=== PATIENT | female | born 1975 | race Caucasian/White ===

== ENCOUNTER 2019-05-03 15:29 | Emergency (ER) | payer SELFPAY ==
[2019-05-03 16:52] VITALS: BP 155/94
--- NOTE | 2019-05-03 16:53 | Event Note ---
ED Screening Note Date of service: 05/03/18 Time: 16:51 ED Screening Note: Pt complains of right eye stye x 1.5 months and worsening pain and blurry vision x 3 days ago states home remedies not helping denies fever This initial assessment/diagnostic orders/clinical plan/treatment(s) is/are blake bject to change based on patients health status, clinical progression and re- assessment by fellow clinical providers in the ED. Further treatment and workup at subsequent clinical providers discretion. Patient/guardian urged not to elope from the ED as their condition may be serious if not clinically assessed and managed. Initial orders include:
--- NOTE | 2019-05-03 19:32 | Emergency Department Report ---
Eye Injury/Foreign Body - HPI Duration: 5 Days Eye Location: Right Severity: Mild Tetanus Status: Up to Date Eye Symptoms: Eye Pain: Yes, Eye Redness: No, Grinding/Hammering Metal: No, Used Eye Protection: No, Contact Lens Use: No, Recalls Injury: No, Photophobia: No Other History: [id number] female is a smoker department complaining of a Pap or mass to the right upper eyelid which has been progressively worsening since the onset despite utilization of tea bags, warm compresses and other [id number] remedies. She reports no morning crusting breath is beginning to feel a sensation of irritation to her eye when she blinks from time to time to time. She reports no loss of vision no headache, no fever, chills no sweats. ED Review of Systems ROS: Stated complaint: STYE Other details as noted in HPI Comment: All other systems reviewed and negative ED Past Medical Hx - Past Medical History Previous Medical History?: Yes Hx Hypertension: Yes Additional medical history: SVT - Surgical History Past Surgical History?: Yes Additional Surgical History: left arm surgery. cardiac ablasion - Social History Smoking Status: Never Smoker Substance Use Type: None - Medications Home Medications: Home Medications Medication Instructions Recorded Confirmed Last Taken Type Tobramycin 0.3% [Tobrex] 1 applicatio OD Q8HR 7 Days #1 tube 05/03/19 Unknown Rx Eye Injury Exam - Exam General: Vital signs noted. No distress. Alert and acting appropriately. ED Course Vital Signs 05/03/19 15:35 Pulse Rate 77 Respiratory 20 Rate Blood Pressure 155/94 O2 Sat by Pulse 98 Oximetry Critical care attestation.: If time is entered above; I have spent that time in minutes in the direct care of this critically ill patient, excluding procedure time. ED Disposition Clinical Impression: Chalazion of right eyelid Disposition: DC-01 TO HOME OR SELFCARE Is pt being admited?: No Does the pt Need Aspirin: No Condition: Stable Instructions: Chalazion (ED) Prescriptions: Tobramycin 0.3% [Tobrex] 1 applicatio OD Q8HR 7 Days #1 tube Referrals: SUKI RIGGS MD [Staff Physician] - 3-5 Days ED Eye Prob EXAM - General Limitations: No Limitations Head exam: Positive: atraumatic Eyelids: Stye: Right (has a red papular lesion. Also has very long artificial eyelashes to each eye) Pupils: Regular, Round: Bilateral, Reactive: Bilateral Sclera: Normal Inspection: Bilateral ENT exam: Positive: normal exam, normal orophraynx Neck exam: Positive: normal inspection, full ROM. Negative: lymphadenopathy Respiratory exam: Positive: normal lung sounds bilaterally Cardiovascular Exam: Positive: regular rate
== END 2019-05-03 21:42 | disposition home or self-care (01) ==
LOC: ED 15:29
DX: H00.11 Chalazion right upper eyelid (principal); I10 Essential (primary) hypertension; I47.1 Supraventricular tachycardia; Z98.890 Other specified postprocedural states; Z79.899 Other long term (current) drug therapy

== ENCOUNTER 2020-12-23 17:29 | Emergency (ER) | payer SELFPAY ==
[2020-12-23 20:09] VITALS: BP 153/114
--- NOTE | 2020-12-23 20:51 | Emergency Department Report ---
Chief Complaint: Wound/Laceration Stated Complaint: DRAINAGE Time Seen by Provider: 12/23/20 20:51 - HPI History of Present Illness: 45-year-old female with a past medical history of hypertension presents to the ER requesting her surgical drainage be removed. Patient states that she had a tummy tuck done in [place] December 12. She states that she was told that she could remove it on her own at home and she was shown how to do it but she states that she came to the ER hoping that it could be removed for her. She states that the drainage from the wound has slowed down. She states that the pain to her abdomen and around the wound is improving. She denies any swelling, redness, fever or chills. - Exam Vital Signs: Vital Signs 12/23/20 20:03 Temperature 98.0 F Pulse Rate 77 Respiratory 16 Rate Blood Pressure 153/114 O2 Sat by Pulse 99 Oximetry MSE screening note: Focused history and physical exam performed. Due to findings the following was ordered: ED Medical Decision Making - Medical Decision Making 45-year-old female with a past medical history of hypertension presents to the ER requesting her surgical drainage be removed. Patient states that she had a tummy tuck done in [place] December 12. She states that she was told that she could remove it on her own at home and she was shown how to do it but she states that she came to the ER hoping that it could be removed for her. She states that she was not given any local plastic surgeons to follow-up with. She states that the drainage from the wound has slowed down. She states that the pain to her abdomen and around the wound is improving. She denies any swelling, redness, fever or chills. Physical exam shows a well-appearing female who is in not in any acute distress. She is not toxic or ill-appearing. She does have a surgical drain noted in her right lower quadrant with no associated signs of infection and she has a soft nontender abdomen. She is afebrile. Her repeat blood pressure was 147/82 and her remaining vitals are stable. Based on patient's history and physical exam, she does not currently have an emergent medical condition requiring work-up, or any emergent intervention at this time. Informed patient that we do not typically remove surgical drains from the ER especially from her surgery that she had done by plastic surgeon in [place]. Informed her that I can give her referral to general surgeon, she can also look up local plastic surgeon so she can follow-up with. Also recommend that she can call the surgical clinic in [facility] and see they can do a telemedicine conference with her and direct as to have she needs to remove it since they did show out to remove it prior to being discharged from the clinic. Patient expressed understanding of instructions and agree with plan. Patient was stable at time of discharge. ED Disposition for MSE Clinical Impression: Encounter for medical screening examination Disposition: MED SCREENING EXAM-LEFT Condition: Stable Instructions: Medical Screening Exam Additional Instructions: I recommend that you follow-up with the general surgeon recently discharge instructions or a local plastic surgeon to have your drain removed. Or you can try to do a telemedicine call with the plastic surgeons office who did your procedure and see if they can guide you through removing the drain since he did she once had to remove it on your own. Return to the ER if symptoms changes or worsens in any way. Referrals: DESI ALVAREZ MD [Staff Physician] - 3-5 Days MAR HARPER MD [Staff Physician] - 3-5 Days (General surgeon) Time of Disposition: 21:00 ED Review of Systems ROS: Stated complaint: DRAINAGE Other details as noted in HPI Comment: All other systems reviewed and negative Constitutional: denies: chills, fever Eyes: denies: eye pain, eye discharge, vision change ENT: denies: ear pain, throat pain Respiratory: denies: cough, shortness of breath, SOB with exertion, SOB at rest, wheezing Cardiovascular: denies: chest pain, palpitations Gastrointestinal: other (Abdominal surgical drain). denies: abdominal pain, nausea, vomiting, diarrhea, constipation, hematemesis, hematochezia Genitourinary: denies: urgency, dysuria, frequency, hematuria, discharge, abnormal menses, dyspareunia Musculoskeletal: denies: back pain, joint swelling, arthralgia Skin: denies: rash, lesions, change in color, change in hair/nails, pruritus Neurological: denies: headache, weakness, numbness, paresthesias, confusion, abnormal gait, vertigo Psychiatric: denies: anxiety, depression, auditory hallucinations, visual hallucinations, homicidal thoughts, suicidal thoughts ED Physical Exam - General Limitations: No Limitations General appearance: alert, in no apparent distress - Head Head exam: Present: atraumatic, normocephalic, normal inspection - Eye Eye exam: Present: normal appearance, PERRL, EOMI Pupils: Present: normal accommodation - Respiratory Respiratory exam: Absent: respiratory distress - Cardiovascular Cardiovascular Exam: Present: regular rate - GI/Abdominal GI/Abdominal exam: Present: soft, other (Surgical drain noted in the right lower quadrant of her abdomen. Small amount of serous sanguinous fluid in the tube. Is no signs infection around the surgical site. Abdomen overall soft and nontender.). Absent: distended, tenderness, guarding - Back Exam Back exam: Present: normal inspection - Neurological Exam Neurological exam: Present: alert, oriented X3 - Psychiatric Psychiatric exam: Present: normal affect, normal mood - Skin Skin exam: Present: intact
== END 2020-12-23 22:00 | disposition left against medical advice (07) ==
LOC: ED 17:29
DX: Z00.00 Encounter for general adult medical examination without abnormal findings (principal); I10 Essential (primary) hypertension; Z53.21 Procedure and treatment not carried out due to patient leaving prior to being seen by health care provider